=== PATIENT | male | born 1980 | race Asian ===

== ENCOUNTER 2023-09-30 18:48 | Emergency (ER) | payer OTHER, BC, SELFPAY ==
--- NOTE | 2023-09-30 20:13 | XR_ITS ---
INDICATION: CRUSH INJURY, PAIN. TECHNIQUE: THREE VIEWS LEFT FOOT. COMPARISON: NONE. FINDINGS: SMALL POSTERIOR CALCANEAL SPUR IS PRESENT. THE MIDFOOT ALIGNMENT IS MAINTAINED. NO SIGN OF ACUTE FRACTURE. MINIMAL ARTHROPATHY AT THE 1ST MTP JOINT. IMPRESSION: NO SIGN OF ACUTE FRACTURE.
[2023-09-30 20:14] VITALS: BP 136/87; PULSE 71; RESP 16; TEMP 36.7; O2SAT 97; BMI 27.4
--- NOTE | 2023-09-30 21:20 | XR_ITS ---
INDICATION: CRUSH INJURY, PAIN. TECHNIQUE: THREE VIEWS LEFT ANKLE. COMPARISON: NONE. FINDINGS: NO FRACTURE IS PRESENT. THE MORTISE IS MAINTAINED. NORMAL JOINT SPACES. IMPRESSION: NO SIGN OF ACUTE INJURY.
--- NOTE | 2023-09-30 21:53 | ED.GENADULT ---
HPI - General Adult General Date Seen: 09/30/23 Chief complaint: Extremity Pain/Injury, Lower Stated complaint: L foot injury Time Seen by Provider: 09/30/23 21:17 Source: patient and RN notes reviewed Mode of arrival: ambulatory Limitations: no limitations History of Present Illness HPI narrative: Patient is a 43-year-old male who was at work earlier tonight when his foot was crushed between a Pallet and a forklift. He was wearing steel toe boots but he says that the crush injury was more to the ankle area. He did have an x-ray of his foot while in triage, but he is really not complaining about foot pain per se. He notes swelling, primarily in the medial ankle. He is able to walk but has difficulty putting full weight on. Related Data Home Medications Medication Instructions Recorded Confirmed No Known Home Medications 09/30/23 09/30/23 Allergies Allergy/AdvReac Type Severity Reaction Status Date / Time No Known Drug Allergies Allergy Verified 09/30/23 20:16 Review of Systems Status of ROS: Reports: 6 or more systems reviewed and unremarkable except as noted in History and below [facility] Medical History No significant past medical history Surgical History No significant past surgical history Exam Narrative: Exam Narrative: Vital signs reviewed In general, alert, nontoxic male. Extremities: Examination of the left ankle shows swelling and tenderness diffusely around the medial malleolus. No significant bruising. No erythema. The lateral malleolus, 5th metatarsal, and entire foot are nontender to palpation. Pulses intact. Distal CMS is normal. Skin: Warm dry and intact. No abrasion or laceration. Const: Vital Signs, click to edit/add: Vital Signs - 24 hr 09/30/23 20:14 Temperature 98.1 F Pulse Rate [Pulse Oximeter] 71 Respiratory Rate 16 Blood Pressure [Ri ght Upper Arm] 136/87 Pulse Oximetry 97 Oxygen Delivery Me thod Room Air Documenting provider has reviewed patient's vital signs: yes Course Course ED Course: X-rays obtained in triage of the left foot by my review are negative. I added on x-rays of the ankle which also appear negative for any acute bony abnormality such as fracture dislocation. Note patient was seen on a day we did not have radiology coverage. I have reviewed with him that at some point in the next day or 2 his x-rays will be reviewed by radiologist if there is subtle findings that I missed we will call him. I offered a splint for comfort and he declines. He did ask for a few days off of work and I filled out a work ability note for his employer. Would recommend ice, ibuprofen elevation. Anticipate significant improvement over the next few days. If unable to return to full duties in a week, should be seen for recheck. Vital Signs Vital signs: Initial Vital Signs Temperature 98.1 F 09/30/23 20:14 Temperature Source Temporal Artery Scan 09/30/23 20:14 Pulse Rate 71 09/30/23 20:14 Respiratory Rate 16 09/30/23 20:14 Blood Pressure 136/87 09/30/23 20:14 Blood Pressure Mean 103 09/30/23 20:14 Blood Pressure Position Sitting 09/30/23 20:14 Pulse Oximetry 97 09/30/23 20:14 Oxygen Delivery Method Room Air 09/30/23 20:14 Vital Signs Temperature 98.1 F 09/30/23 20:14 Pulse Rate 71 09/30/23 20:14 Respiratory Rate 16 09/30/23 20:14 Blood Pressure 136/87 09/30/23 20:14 Pulse Oximetry 97 09/30/23 20:14 Oxygen Delivery Method Room Air 09/30/23 20:14 Temperature 98.1 F 09/30/23 20:14 Pulse Rate 71 09/30/23 20:14 Respiratory Rate 16 09/30/23 20:14 Blood Pressure 136/87 09/30/23 20:14 Pulse Oximetry 97 09/30/23 20:14 Oxygen Delivery Method Room Air 09/30/23 20:14 Discharge Plan Discharge Clinical Impression: Contusion of ankle, left Patient Disposition: Home, Self-Care Condition: Stable Instructions: Contusion in Adults (ED) Additional Instructions: Relative rest, elevation, ice 15-20 minutes 3 times daily for the next few days. Ibuprofen 400 mg 3 times daily as needed with food. Off work the next few days, okay to return to full duty next Saturday. If by that time you are not feeling able to stand and walk normally, you should be seen for re-evaluation. X-rays today do not show any broken bones by my review, however they will not be reviewed by Radiology for another day or 2. We will call you if any subtle findings were missed tonight. Prescriptions: No Action No Known Home Medications Stand Alone Forms: [employer] Info Instructions
[2023-09-30 21:54] VITALS: BP 125/74; PULSE 78; RESP 16; TEMP 36.7; O2SAT 97
[2023-09-30 21:59] VITALS: BP 125/74; PULSE 78; RESP 16; TEMP 36.7
--- OUTSIDE RECORDS SUMMARY | 2023-09-30 22:03 | XMS_ITS | Encounter Summary ---
Author Name Unknown Organization [facility] Address [address] [place] [address] Care Team Providers Care Electron Beam Machine Welder Setter Name Role Phone Jame Cruz Unavailable [phone] Samuel Flower MD Primary Care Provider [phone] Samuel Flower MD Unavailable [phone] Andrew Matt MD Unavailable [phone] Phuong Schwartz RN Unavailable Unavailable Encounter Details Date Type Department Care Team (Late st Contact Info) Description 03/28/2022 [facility] [place] [address] [address] Paulette Draper Social History Tobacco Use Types Packs/Day Years Used Date Smoking Tobacco: Former Smokeless Tobacco: Never Alcohol Use Standard Drinks/Week Comments Yes 0 (1 standard drink = 0.6 oz pur e alcohol) occasional Social Connection and Isolat ion Panel [NHANES] Answer Date Recorded Frequency of Communication w ith Friends and Family Not on file 03/27/2022 How often do you get togethe r with friends or relatives? Twice a week 03/27/2022 How often do you attend chur ch or samaritan services? More than 4 times per year 03/27/2022 Do you belong to any clubs o r organizations such as religious groups, unions, fraternal or athletic groups, or school groups? Yes 03/27/2022 Attends Club or Organization Meetings Not on blanca e 03/27/2022 Are you , , di vorced, , never , or living with a partner? 03/27/2022 AUDIT-C Answer Date Recorded Q1: How often do you have a drink containing alc ohol? Monthly or less 03/27/2022 Q2: How many drinks containi ng alcohol do you have on a typical day when you are drinking? 1 or 2 03/27/2022 Q3: How often do you have si x or more drinks on one occasion? Less than monthly 03/27/2022 Overall Financial Resource Strain (CARDIA) Answe r Date Recorded How hard is it for you to pa y for the very basics like food, housing, medical care, and heating? Somewhat hard 03/27/2022 PHQ-2 Answer Date Recorded PHQ-2 Score 0 03/27/2022 [facility] Occupat ional Health - Occupational Stress Questionnaire Answer Date Recorded Do you feel stress - tense, restless, nervous, or anxious, or unable to sleep at night because your mind is troubled all the time - these days? Not at all 03/27/2022 Exercise Vital Sign Answer Date Recorde d On average, how many days pe r week do you engage in moderate to strenuous exercise (like a brisk walk)? 2 days 03/27/2022 On average, how many minutes do you engage in exercise at this level? 30 min 03/27/2022 Hunger Vital Sign Answer Date Recorded Within the past 12 months, y ou worried that your food would run out before you got the money to buy more. Never true 03/27/20 22 Within the past 12 months, t he food you bought just didn't last and you didn't have money to get more. Never true 03/27/2022 PRAPARE - Transportation Answer Date Re corded In the past 12 months, has l ack of transportation kept you from medical appointments or from getting medications? No 04/2022 In the past 12 months, has l ack of transportation kept you from meetings, work, or from getting things needed for daily living? No 03/27/2022 Housing Stability Vital Sign Answer Alexandro e Recorded In the last 12 months, was t here a time when you were not able to pay the mortgage or rent on time? No 03/27/2022 In the last 12 months, how many places have you lived? 1 03/27/2022 In the last 12 months, was t here a time when you did not have a steady place to sleep or slept in a fpc (including now)? No 03/27/2022 Sex and Gender Information Value Date Recorded Sex Assigned at Not on file Gender Identity Not on file Sexual Orientation Not on file COVID-19 Exposure Response Date Recorded In the last 10 days, have yo u been in contact with someone who was confirmed or suspected to have Coronavirus/COVID-19? No / Unsure 03/27/2022 8:06 AM CDT documented as of this encounter Plan of Treatment Not on file documented as of this encounter Visit Diagnoses Not on filedocumented in this encounter Additional Health Concerns Assessment Noted Time PHQ-9 Depression Total Score: 5 01/23/20 22 12:00 PM CDT documented as of this encounter Care Teams Electron Beam Machine Welder Setter Relationship Specialty [place] [address] [place] [address] PCP - General Family Medicine 03/27/22 Jame Cruz PA [address] [place] [id number] Assigned PCP 01/27/22 04/06/22 [place] [address] [place] [address] Assigned PCP 04/07/22 Andrew Matt MD [address] [facility] [address] [place] [address] Assigned Surgical Provider 05/12/22 Phuong Schwartz RN Personal Advocate & Liaison (PAL) 07/31/22 documented as of this encounter
--- OUTSIDE RECORDS SUMMARY | 2023-09-30 22:03 | XMS_ITS | Referral Summary ---
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, unspecified laterality Take 1 tablet (300 mg) by mouth daily 90 tablet 1 03/27/2022 Active allopurinol (ZYLOPRIM) 100 MG tabletIndications: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 Discussed. Abdominal pain, epigastric 03/27/2022 Last Assessment & Plan: 2 weeks RUQ. Palliatives and provocatives not noted. Brief, no other details noted. Abd exam unrevealing. Broaden data base Heartburn 03/27/2022 Last Assessment & Plan: Occasionally with rapid lunch ingestion at work, relieved by drinking water. Advised slower eating. Monitor Immunization deficiency 03/27/2022 Last Assessment & Plan: He is afraid. Discussed. 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 Testicle swelling 03/27/2022 Last Assessment & Plan: He reports painful R sided swelling relieved by ejaculation. Not clinically evident asymmetry. 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 Discussed allopurinol compliance, lifelong therapy, avoidance of indomethacin. Broaden data base Measure lab yearly Resolved Problems Problem Noted Date Diagnosed Date Resolved Date CARDIOVASCULAR SCREENING; LD L GOAL LESS THAN 160 05/27/2017 02/23/2019 Acute gouty arthritis 05/23/20172021 Immunizations Name Administration Dates Next Due MMR 05/15/2001 Poliovirus, inactivated (IPV) 05/15/2001 TDAP Vaccine (Adacel) 10/12/2013 Social History Tobacco Use Types Packs/Day Years Used Date Smoking Tobacco: Former Smokeless Tobacco: Never Tobacco Cessation:Counseling Given: Yes Alcohol Use Standard Drinks/Week Comments Yes 0 (1 standard drink = 0.6 oz pur e alcohol) occasional Social Connection and Isolat ion Panel [NHANES] Answer Date Recorded Frequency of Communication w ith Friends and Family Not on file 03/27/2022 How often do you get togethe r with friends or relatives? Twice a week 03/27/2022 How often do you attend [facility] or yarsanism services? More than 4 times per year 03/27/2022 Do you belong to any clubs o r organizations such as jew groups, unions, fraternal or athletic groups, or [...] Answer Date Recorded PHQ-2 Score 0 03/27/2022 [facility] Occupat ional Health - Occupational Stress [...] place to sleep or slept in a detention (including now)? No 03/27/2022 Adolescent Education Answer Date Record ed Getting School Help Needed Not on file 05/10 Sex and Gender Information Value Date Recorded Sex Assigned at Not on file Gender Identity Not on file Sexual Orientation Not on file Last Filed Vital Signs Vital Sign Reading Time Taken Comments Blood Pressure 116/74 05/03/2022 10:24 AM CDT Pulse 68 05/03/2022 10:24 AM CDT Temperature 36.6 ??C (97.8 ??F) 03/27/2022 8:24 AM CD T Respiratory Rate 16 05/03/2022 10:24 AM CDT Oxygen Saturation 98% 05/03/2022 10:24 AM CDT Inhaled Oxygen Concentration - - Weight 78.5 kg (173 lb) 05/03/2022 10:24 AM CDT Height 167.6 cm (5' 6) 05/03/2022 10:24 AM CDT Body Mass Index 27.92 05/03/2022 10:24 AM CDT Plan of Treatment Not on file Care Teams Pest Control Worker Relationship Specialty [place] [address] [place] [address] PCP - General Family Medicine 03/27/22 [place] [address] [place] [address] Assigned PCP 04/07/22 Andrew Matt MD [address] [facility] [address] [place] [address] Assigned Surgical Provider 05/12/22 Phuong Schwartz RN Personal Advocate & Liaison (PAL) 07/31/22
--- OUTSIDE RECORDS SUMMARY | 2023-09-30 22:03 | XMS_ITS | Clinical Summary ---
Author Name Unknown Organization [facility] Address [address] [place] [address] Care Team Providers Care Deck Steward Name Role Phone Samuel Flower MD Primary Care Provider [phone] Samuel Flower MD Unavailable [phone] Andrew Matt MD Unavailable [phone] Phuong Schwartz RN Unavailable Unavailable Allergies No [...] inactivated (IPV) 05/15/2001 TDAP Vaccine (Adacel) 10/12/2013 Family History Medical History Relation Comments Diabetes Mother Relation Status Comments Father Mother Alive Social History Tobacco Use Types Packs/Day Years [...] week 03/27/2022 How often do you attend [facility] or methodist services? More than 4 times per year 03/27/2022 Do you belong to any clubs o r organizations such as scientology groups, unions, fraternal or athletic groups, or [...] Answer Date Recorded PHQ-2 Score 0 03/27/2022 [facility] Occupat ional Health - Occupational Stress [...] 05/03/2022 10:24 AM CDT Plan of Treatment Health Maintenance Due Date Last Done Comments HEPATITIS B IMMUNIZATION (1 of 3 - 3-dose series) 1980 COVID-19 Vaccine (#1) 1980 IPV IMMUNIZATION (2 of 3 - Adult catch-up series) 06/12/2001 05/15/2001 ANNUAL REVIEW OF HM ORDERS 03/27/2023 03/27/2022 CBC W/DIFFERENTIAL 03/27/2023 03/27/2022, 0 09/23/2019, 02/23/2019, Additional history exists CMP 03/27/2023 03/27/2022, 03/2019, 10/12/2013 YEARLY PREVENTIVE VISIT 03/27/2023 03/27/2022 URIC ACID 04/11/2023 04/11/2022, 04/2022, 10/23/2019, Additional history exists INFLUENZA VACCINE (#1) 2023 PHQ-2 (once per calendar year) 2023 03/27/2022, 01/22/2022, 01/22/2022, Additional history exists DTAP/TDAP/TD IMMUNIZATION (2 - Td or Tdap) 10/12/2023 10/12/2013 GLUCOSE 03/27/2025 03/27/2022, 07/0 03/2019, 10/12/2013, Additional history exists ADVANCE CARE PLANNING 03/27/2027 03/27/2022 LIPID 03/27/2027 03/27/2022, 10/12/2013 HEPATITIS C SCREENING Completed 03/27/2022 HIV SCREENING Completed 03/27/2022 HPV IMMUNIZATION Aged Out No longer e ligible based on patient's age to complete this topic MENINGITIS IMMUNIZATION Aged Out No l onger eligible based on patient's age to complete this topic Pneumococcal Vaccine: Pediatrics (0 to 5 Years) and At-Risk Patients (6 to 64 Years) Aged Out No longer eligible based on patient's age to complete this topic RSV MONOCLONAL ANTIBODY Aged Out No l onger eligible based on patient's age to complete this topic Care Teams Deck Steward Relationship Specialty [place] [address] [place] [address] PCP - General Family Medicine 03/27/22 [place] [address] [place] [address] Assigned PCP 04/07/22 Andrew Matt MD [address] [address] Assigned Surgical Provider 05/12/22 EfrenPhuong RN Personal Advocate & Liaison (PAL) 07/31/22
== END 2023-09-30 22:03 | disposition home or self-care (01) ==
LOC: ED 22:02
PROVIDERS: Emergency Provider Emergency Medicine
DX: S90.02XA Contusion of left ankle, initial encounter (principal); X58.XXXA Exposure to other specified factors, initial encounter; Y99.0 Civilian activity done for income or pay
CPT/HCPCS: 73610; 73630; 99283; 99284